=== PATIENT | female | born 2000 | race Caucasian/White ===

== ENCOUNTER → 2021-05-06 11:06 | Outpatient (CLI) | payer BC, OTHER, SELFPAY ==
[2021-05-06 12:03] LABS: COVID19 -Nasal RAPID Negative (Negative)
== END ==
PROVIDERS: Visit Provider Nurse Practitioner
DX: R52 Pain, unspecified (principal); R51.9 Headache, unspecified; J02.9 Acute pharyngitis, unspecified; Z20.822 Contact with and (suspected) exposure to COVID-19
CPT/HCPCS: 87635